=== PATIENT | female | born 2000 | race Caucasian/White ===

== ENCOUNTER 2023-06-13 18:25 | Observation (INO) | payer OTHER ==
[2023-06-13] MEDS ORDERED: MECLIZINE HCL 25 MG TABLET (FP) PO ONE (20:05)
[2023-06-13] MEDS ORDERED: METOCLOPRAMIDE HCL INJECTION 10 MG/2 ML VIAL IVPUSH ONE (20:05)
[2023-06-13] MEDS ORDERED: ACETAMINOPHEN 1000 MG/100 ML BAG IVPB ONE (20:05)
[2023-06-13] MEDS ORDERED: ACETAMINOPHEN INJECTION 100 ML IVPB ONE (20:32)
[2023-06-13] MEDS ORDERED: MECLIZINE HCL 25 MG TABLET (FP) ONE (20:32)
[2023-06-13] MEDS ORDERED: METOCLOPRAMIDE HCL INJECTION 10 MG/2 ML VIAL ONE (20:32)
[2023-06-13 20:43] LABS: BASO % 0.5 % (0-2.0); EOS % 0.2 % (0-4.5); HEMATOCRIT 38.5 % (32.4-45.2); HEMOGLOBIN 13.3 GM/dL (10.7-15.3); LYMPH % 19.9 % (8-40); MCH 26.6 pg (25.7-33.7); MCHC 34.5 g/dl (32.0-36.0); MEAN CELL VOLUME 77.2 fl (80-96); MONO % 6.4 % (3.8-10.2); PLATELET COUNT 347 10^3/uL (134-434); RBC 4.99 M/mm3 (3.60-5.2); RDW 14.7 % (11.6-15.6); WHITE BLOOD COUNT 14.3 K/mm3 (4.0-10.0)
[2023-06-13 20:54] LABS: POTASSIUM 5.6 mmol/L (3.5-5.1)
[2023-06-13 20:56] LABS: CALCIUM 8.7 mg/dL (8.5-10.1)
[2023-06-13 20:57] LABS: ALBUMIN 3.2 g/dl (3.4-5.0); BLOOD UREA NITROGEN 6.9 mg/dL (7-18)
[2023-06-13 21:00] LABS: CREATININE 0.5 mg/dL (0.55-1.3)
[2023-06-13 21:01] LABS: TOT PROT 7.7 g/dl (6.4-8.2)
[2023-06-13 21:02] LABS: BILIRUBIN,TOTAL 0.7 mg/dL (0.2-1)
[2023-06-13] MEDS ORDERED: CEFPODOXIME PROXETIL 100 MG TABLET PO ONE (21:55)
[2023-06-13 23:21] LABS: POTASSIUM 3.8 mmol/L (3.5-5.1)
[2023-06-13 23:22] LABS: CALCIUM 8.4 mg/dL (8.5-10.1)
[2023-06-13 23:23] LABS: BLOOD UREA NITROGEN 6.4 mg/dL (7-18)
[2023-06-13 23:26] LABS: CREATININE 0.4 mg/dL (0.55-1.3)
[2023-06-13] MEDS ORDERED: SODIUM CHLORIDE 0.9% 500 ML INFUS.BAG IV ONE (23:45)
[2023-06-13] MEDS ORDERED: KETOROLAC TROMETHAMINE 15 MG/ML VIAL IVPUSH ONE (23:56)
[2023-06-14] MEDS ORDERED: KETOROLAC TROMETHAMINE 15 MG/ML VIAL ONE (00:32)
[2023-06-14] MEDS ORDERED: CEFTRIAXONE 1,000 MG in DEXTROSE 5%-WATER - 50 ML IVPB ONE (01:08)
[2023-06-14] MEDS ORDERED: CEFTRIAXONE 1 GM/50 ML BAG ONE (01:30)
[2023-06-14] MEDS ORDERED: ACETAMINOPHEN 325 MG TABLET (FP) PO PRN (02:18)
[2023-06-14] MEDS: SODIUM CHLORIDE 1,000 ML IV SCH (05:06)
[2023-06-14 06:48] LABS: BASO % 0.3 % (0-2.0); EOS % 0.1 % (0-4.5); HEMATOCRIT 36.4 % (32.4-45.2); HEMOGLOBIN 12.5 GM/dL (10.7-15.3); LYMPH % 20.3 % (8-40); MCH 26.7 pg (25.7-33.7); MCHC 34.3 g/dl (32.0-36.0); MEAN CELL VOLUME 77.9 fl (80-96); MEAN PLT VOLUME 8.2 fl (7.5-11.1); MONO % 5.3 % (3.8-10.2); PLATELET COUNT 341 10^3/uL (134-434); RBC 4.67 M/mm3 (3.60-5.2); RDW 14.5 % (11.6-15.6); WHITE BLOOD COUNT 11.9 K/mm3 (4.0-10.0)
[2023-06-14 07:09] LABS: POTASSIUM 4.1 mmol/L (3.5-5.1)
[2023-06-14 07:10] LABS: CALCIUM 7.9 mg/dL (8.5-10.1)
[2023-06-14 07:11] LABS: BLOOD UREA NITROGEN 4.9 mg/dL (7-18)
[2023-06-14 07:14] LABS: CREATININE 0.4 mg/dL (0.55-1.3)
[2023-06-14] MEDS ORDERED: ACETAMINOPHEN 325 MG TABLET (FP) ONE (08:08)
[2023-06-14] MEDS ORDERED: IBUPROFEN 600 MG TABLET (FP) PO ONE ×2 (08:10→08:12)
[2023-06-14 08:24] LABS: EPI CELLS 20 /uL (0-25.1); HYALINE CASTS 1 /uL (0-3.1); PH,URINE 6.5 (5.0-8.0); URINE APPEARANCE CLEAR; URINE BACTERIA 727 /uL (0-1359); URINE BILIRUBIN NEGATIVE (NEGATIVE); URINE COLOR YELLOW; URINE GLUCOSE (UA) NEGATIVE (NEGATIVE); URINE KETONE 2+ (NEGATIVE); URINE LEUK ESTERASE TRACE (NEGATIVE); URINE NITRITE NEGATIVE (NEGATIVE); URINE PROTEIN 1+ (NEGATIVE); URINE WBC 61 /uL (0-25.8)
[2023-06-14 08:41] LABS: URINE RBC 1979 /uL (0-23.9)
[2023-06-14] MEDS ORDERED: busPIRone HCL 5 MG TABLET ONE (08:47)
[2023-06-14] MEDS: busPIRone HCL 5 MG TABLET PO SCH ×2 (09:01→23:02)
[2023-06-14] MEDS ORDERED: PARoxetine HCL 20 MG TABLET PO SCH (10:00)
[2023-06-14] MEDS ORDERED: VANCOMYCIN 1,000 MG in DEXTROSE 5%-WATER - 250 ML IVPB SCH (11:00)
[2023-06-14] MEDS ORDERED: VANCOMYCIN 1 GRAM (PRE-DOCKED) 1,000 MG/250 ML BAG IVPB ONE (11:27)
[2023-06-14] MEDS ORDERED: CEFEPIME 2 GM/100 ML BAG IVPB ONE (15:44)
[2023-06-14] MEDS: CEFEPIME 2 GM in DEXTROSE 5%-WATER 100 ML IVPB SCH ×2 (15:45→19:39)
[2023-06-14] MEDS: FLUoxetine HCL 20 MG CAPSULE PO SCH (16:04)
[2023-06-14 19:58] VITALS: BMI 29.0
[2023-06-14] MEDS: IBUPROFEN 600 MG TABLET (FP) PO PRN (20:24)
[2023-06-14] MEDS: VANCOMYCIN/WATER FOR INJ (PEG) 1,000 MG/200 ML BAG IVPB SCH (23:02)
[2023-06-15] MEDS: CEFEPIME 2 GM in DEXTROSE 5%-WATER 100 ML IVPB SCH ×3 (01:07→17:16)
[2023-06-15] MEDS: SODIUM CHLORIDE 1,000 ML IV SCH ×2 (08:42→21:41)
[2023-06-15] MEDS: FLUoxetine HCL 20 MG CAPSULE PO SCH (09:07)
[2023-06-15] MEDS: busPIRone HCL 5 MG TABLET PO SCH ×2 (09:07→21:36)
[2023-06-15] MEDS ORDERED: CEFTRIAXONE 1 GM in DEXTROSE 5%-WATER - 50 ML IVPB SCH (10:00)
[2023-06-15] MEDS: VANCOMYCIN/WATER FOR INJ (PEG) 1,000 MG/200 ML BAG IVPB SCH ×2 (12:07→23:29)
[2023-06-15] MEDS: IBUPROFEN 600 MG TABLET (FP) PO PRN (17:16)
[2023-06-15] MEDS: OFLOXACIN 0.3% OTIC SOLUTION 5 ML BOTTLE AS SCH (21:40)
[2023-06-16] MEDS: CEFEPIME 2 GM in DEXTROSE 5%-WATER 100 ML IVPB SCH ×2 (01:03→09:08)
[2023-06-16] MEDS: SODIUM CHLORIDE 1,000 ML IV SCH ×2 (04:45→07:10)
[2023-06-16] MEDS: IBUPROFEN 600 MG TABLET (FP) PO PRN (05:57)
[2023-06-16] MEDS: OFLOXACIN 0.3% OTIC SOLUTION 5 ML BOTTLE AS SCH (09:08)
[2023-06-16] MEDS: FLUoxetine HCL 20 MG CAPSULE PO SCH (09:08)
[2023-06-16] MEDS: busPIRone HCL 5 MG TABLET PO SCH (09:08)
[2023-06-16 09:15] VITALS: BP 137/93; PULSE 79; RESP 178; TEMP 98.3
[2023-06-16] MEDS: VANCOMYCIN/WATER FOR INJ (PEG) 1,000 MG/200 ML BAG IVPB SCH (11:15)
== END 2023-06-16 13:55 | disposition home or self-care (01) ==
LOC: JER 18:25 → JERBED 06-14 01:09 → J4W 06-14 18:51
PROVIDERS: ADMIT Internal Medicine; ATTEND Family Medicine
PROC: 3E03329 Introduction of Other Anti-infective into Peripheral Vein, Percutaneous Approach (ICD-10-PCS; principal; 2023-06-14)
PROC: 3E033NZ Introduction of Analgesics, Hypnotics, Sedatives into Peripheral Vein, Percutaneous Approach (ICD-10-PCS; 2023-06-14)
PROC: 3E0333Z Introduction of Anti-inflammatory into Peripheral Vein, Percutaneous Approach (ICD-10-PCS; 2023-06-14)
PROC: 3E033GC Introduction of Other Therapeutic Substance into Peripheral Vein, Percutaneous Approach (ICD-10-PCS; 2023-06-14)
DX: H60.92 Unspecified otitis externa, left ear (principal); H66.92 Otitis media, unspecified, left ear; H70.90 Unspecified mastoiditis, unspecified ear; F32.A Depression, unspecified; R73.03 Prediabetes; A41.9 Sepsis, unspecified organism; R00.0 Tachycardia, unspecified; R50.9 Fever, unspecified; Z88.0 Allergy status to penicillin; Z88.2 Allergy status to sulfonamides
CPT/HCPCS: 36415; 70480-TC; 71046-TC-FY; 80048; 80053; 81003; 83605; 84703; 85025; 87040; 87070; 87086; 87186; 87205; 93005; 93010; 96365; 96367; 96375; 99283-25; 99285-25; G0378; G0480